=== PATIENT | female | born 1985 | race Caucasian/White ===

== ENCOUNTER 2017-11-07 18:53 | Inpatient (IN) | payer OTHER ==
[~2017-11-07] VITALS: Ht 167.6 cm; Wt 61.2 kg
[2017-11-07] MEDS ORDERED: ONDANSETRON ODT 4 MG TAB.RAPDIS SL PRN (23:45)
[2017-11-07] MEDS ORDERED: MAG HYDROX/AL HYDROX/SIMETH 30 ML LIQUID UDC PO PRN (23:45)
[2017-11-07] MEDS ORDERED: LORAZEPAM 1 MG TABLET PO PRN ×2 (23:45)
[2017-11-07] MEDS ORDERED: diphenhydrAMINE 50 MG CAPSULE PO PRN (23:45)
[2017-11-07] MEDS ORDERED: MAGNESIUM HYDROXIDE 30 ML LIQUID UDC PO PRN (23:45)
[2017-11-07] MEDS ORDERED: IBUPROFEN 400 MG TABLET PO PRN (23:45)
[2017-11-07] MEDS ORDERED: DICYCLOMINE HCL 20 MG TABLET PO PRN (23:45)
[2017-11-07] MEDS ORDERED: MIRALAX 17 GM POWD.PACK PO PRN (23:45)
[2017-11-07] MEDS ORDERED: THIAMINE HCL 200 MG/2 ML VIAL IM ONE (23:45)
[2017-11-07] MEDS ORDERED: CLONIDINE HCL 0.1 MG TABLET PO PRN (23:45)
[2017-11-07] MEDS ORDERED: LOPERAMIDE HCL 2 MG CAPSULE PO PRN ×2 (23:45)
[2017-11-07] MEDS ORDERED: ONDANSETRON 4 MG/2 ML VIAL IM PRN (23:45)
[2017-11-07] MEDS ORDERED: LORAZEPAM 2 MG/1 ML VIAL IM PRN (23:45)
--- NOTE | 2017-11-07 23:45 | NUR ---
Intake assessment Pt meant on first floor riffling through luggage, sorting, disheveled in dirtly clothing. Affect is flat, avoidant, hesitant in responding to requests to take seat and have vitals taken, obsessed with sorting clothing. Once seated pt reports not feeling well and very jumpy. VSs taken, T 99.0, P 110, BP 138/82, R 18, SaO2 94% on RA. Policies and Procedures with admission and stay explained, including distruction of all controlled substances before discharge. Pt agrees to terms and conditions, able to sign consents.
[2017-11-08] VITALS (7 sets, daily range): BP systolic 121–138; BP diastolic 75–94
[2017-11-08] MEDS ORDERED: DIPH25TA25 PO (00:09)
[2017-11-08] MEDS ORDERED: SERT100T PO (00:09)
[2017-11-08] MEDS ORDERED: METH-406 PO (00:09)
[2017-11-08] MEDS ORDERED: QUET300T2 PO (00:09)
[2017-11-08] MEDS ORDERED: SULF1TAB48 PO (00:09)
[2017-11-08] MEDS ORDERED: GABA600T2 PO (00:09)
[2017-11-08] MEDS ORDERED: TRAZ-147 PO (00:09)
[2017-11-08] MEDS ORDERED: CLON0.1T PO (00:09)
[2017-11-08] MEDS ORDERED: ROPI1TAB2 PO (00:09)
[2017-11-08 00:18] LABS: BASOPHILS % (AUTO) 0.5 % (0.0-2.0); EOSINOPHILS # (AUTO) 0.1 K/uL (0.0-0.7); EOSINOPHILS % (AUTO) 0.8 % (0.0-7.0); HEMATOCRIT 41.2 % (31.2-41.9); HEMOGLOBIN 14.3 g/dL (10.9-14.3); LYMPHOCYTES # (AUTO) 1.8 K/uL (20.0-40.0); LYMPHOCYTES % (AUTO) 20.5 % (20.5-51.5); MEAN CORPUSCULAR HEMOGLOBIN 30.1 uug (24.7-32.8); MEAN CORPUSCULAR HGB CONC 35 g/dL (32.3-35.6); MEAN CORPUSCULAR VOLUME 86.7 fL (75.5-95.3); MONOCYTES # (AUTO) 0.9 K/uL (2.0-10.0); MONOCYTES % (AUTO) 10.5 % (0.0-11.0); NEUTROPHILS % (AUTO) 67.7 % (38.5-71.5); PLATELET COUNT (AUTO) 198 K/uL (179-408); RED BLOOD CELL COUNT(AUTO) 4.75 MIL/uL (3.63-4.92); WHITE BLOOD COUNT (AUTO) 8.9 K/uL (3.8-11.8)
[2017-11-08 00:43] LABS: *URINE HCG, QUAL NEGATIVE (NEGATIVE)
[2017-11-08 00:54] LABS: ETHANOL < 3 MG/DL (0-0)
[2017-11-08 00:58] LABS: ALANINE AMINOTRANSFERASE 65 U/L (14-59); ALKALINE PHOSPHATASE 70 U/L (50-136); AMYLASE 107 U/L (25-115); ASPARTATE AMINOTRANSFERASE 60 U/L (15-37); BILIRUBIN,TOTAL 0.6 mg/dL (0.2-1.0); CARBON DIOXIDE 26 mmol/L (21-32); CREATININE 1.1 mg/dL (0.6-1.3); GLUCOSE 145 mg/dL (74-106); LIPASE 404 U/L (73-393); TOTAL PROTEIN, SERUM 7.5 g/dL (6.4-8.2); UREA NITROGEN, BLOOD 15 mg/dL (7-18)
--- NOTE | 2017-11-08 01:00 | NUR ---
Admission Patient is a 31 year old female arriving from [facility] in [place] for detox/withdrawal from Opiates, ETOH, Methamphetamine. Pt was excorted onto unit at 0006 by female attendant, affect depressed, avoidant, little eye contact. States she wants to learn to life life better. Numerous attempts at sobriety in past, longest period of abstinence being 5 to 6 years, ending 3 years prior. Divorce from August 2016, who had approximately same time clean before using also at about same time according to patient. Since that time some periods of sobriety have been achieved but for past 3 months habit has included a fifth of Vodka/day, 1 gram of heroin/day and 1 g of methamphetamine/week. A rehab in [place] for 50+ days, a psychiatrist by the name of Dr Eleazar Thompson are mentioned during the past years attempts. Patient now presents as helpless/hopeless, disheveled with numerous sores on face/hands, skin assessment reveals further sores/scabs on bilateral legs, arms, buttocks, back and shoulders. VSS, but reports body really acting up , and has visible tremors, diaphoresis, chills, no nausea but reports diarrhea for last day. Pulse >100, lungs clear all quadrants, no rales or rhonchi. Bowel sounds present all 4 quadrants, reports normal voids, diarrhea past day. COWS 23, CIWA 19. Denies suicidal ideas, claims Dr Thompson as her psychiatrist (despite not having seen him in 10 months). Meds brought by Pt bear prescriber name of Dr. Za Fontana.
[2017-11-08 01:06] LABS: *AMPHETAMINE, URINE POSITIVE (NEGATIVE); *BARBITURATE, URINE NEGATIVE (NEGATIVE); *CANNABINOID, URINE POSITIVE (NEGATIVE); *COCCAINE, URINE NEGATIVE (NEGATIVE); *OPIATE, URINE POSITIVE (NEGATIVE); *PHENCYCLIDINE SCREEN,URINE NEGATIVE (NEGATIVE)
[2017-11-08 01:09] LABS: THYROID STIMULATING HORMONE 0.288 mIU/mL (0.358-3.740)
--- NOTE | 2017-11-08 01:17 | NUR ---
PRN note30 [place] Prns given at 0117: Immodium 2mg PO for diarrhea Robaxin 750mg PO for myalgias Ativan 2mg PO for anxiety/detox Bentyl 20mg PO for abdominal muscle spasms Subutex 4mg SL for withdrawal/detox Motrin 400mg PO for pain Will continue to monitor and reassess in 1 hour
[2017-11-08] MEDS: METHOCARBAMOL 750 MG TABLET PO PRN ×2 (01:19→10:43)
[2017-11-08] MEDS: BUPRENORPHINE HCL 2 MG TAB.SUBL SL PRN ×2 (01:21→10:43)
[2017-11-08 01:32] LABS: CHLORIDE 103 mmol/L (98-107); POTASSIUM 3.4 mmol/L (3.5-5.1)
--- NOTE | 2017-11-08 02:17 | NUR ---
Reassessment Note: Meds effective. Pt verbalizes improvement in body aches, decreased anxiety, no new incidents of diarhea
--- NOTE | 2017-11-08 03:45 | NUR ---
Behavioral Note: Patient was medicated with Vitamin B1 injection on her left buttock as ordered. After patient received medication, patient was observed pacing and being dramatic of how much the medication hurt. Patient started walking around the room while Primary Nurse and orientee Willie was in the room. We were about to leave when we noticed that we couldnt find the syringe with needle in it. Patient was asked if she saw a syringe but patient denied. Room Search and Body search was done but did not find anything. Administration was notified and placed patient on 1:1 as instructed. Pt managed to get in her bathroom before the 1:1 got to her and injected her self with tap water on her left hand. Left hand was noted with swelling and took picture of it. No other injury noted. Changed pts room to 330. Patient was placed on patio and room restriction. Will closely monitor patient.
--- NOTE | 2017-11-08 07:20 | NUR ---
End of Shift Note: Patient is a 32 y.o female admitted at approximately 0006 for medically supervised withdrawal from polysubstance abuse(ETOH/Heroin/Meth). Patient is alert & oriented x4. Patient has no taper yet. PRN medications available for s/s of withdrawal. Initial COWS 23 CIWA 19. Pt received PRN Immodium, RObaxin, Ativan 2mg, Subutex 4mg, Motrin and Bentyl at 0117 and were effective. Last COWS 17 CIWA 13 noted at 0430. Pt slept for a total of 6 hours. Fluid intake: 355 ml. Voided 2x with no bowel movement during my shift. Patient was encourage to increase fluid intake as tolerated. All needs attended. Safety measures in place. Will endorse to day shift nurse.
--- NOTE | 2017-11-08 08:09 | NUR ---
Start of shift note; Received report from night nurse. Patient is a 32 year old male admitted on 11/07/17 for ETOH/ Opiate/ Methamphetamine withdrawals. Patient is complaining of muscle aches, anxiety, agitation, diaphoresis, stomach cramps, avoidant to eye contact and withdrawn. Patient is currently under 1:1 supervision for behavioral management. Educated patient regarding the importance of compliance to treatment and medication regime, verbalized understanding. Educated patient regarding unit protocols and policies, verbalized understanding. Will closely monitor patient. All safety measures secured. Sitter at bedside.
[2017-11-08] MEDS ORDERED: TUBERCULIN,PURIF.PROT.DERIV. 5 TU/0.1 ML TEST ID ONE (09:00)
[2017-11-08] MEDS: MULTIVITAMINS,THERAPEUTIC TABLET PO SCH (09:02)
[2017-11-08] MEDS: FOLIC ACID 1 MG TABLET PO SCH (09:02)
[2017-11-08] MEDS: THIAMINE HCL 100 MG TABLET PO SCH (09:02)
--- NOTE | 2017-11-08 09:30 | NUR ---
PRN medication; Patient's current COWS is 11 and CIWA score of 11 manifested by tremors, diaphoresis, muscle aches, anxiety, agitation, runny nose. PRN Ativan 1mg PO given for CIWA score of 11. Witnessed patient take medication, thorough mouth assessment done post medication administration. Re-informed patient regarding the importance of compliance to unit protocols and policies, patient verbalized understanding. Will closely monitor patient. Patient remained on 1:1 supervision.
[2017-11-08] MEDS ORDERED: IBUPROFEN 600 MG TABLET PO PRN (09:45)
[2017-11-08] MEDS ORDERED: POTASSIUM CHLORIDE 10 MEQ TAB.PRT.SR PO ONE (09:45)
--- NOTE | 2017-11-08 10:06 | NUR ---
Potassium Supplement; Patient's Potassium level is 3.4, supplemented patient with Micro K 30 meq given. Will continue to monitor patient.
--- NOTE | 2017-11-08 10:40 | NUR ---
Re-assessment and PRN medication; Patient appears anxious, irritable, scratching the scabs on her face/neck/ shoulders, goosebump noted, patient is complaining of muscle aches, diaphoresis, skin picking noted. Current COWS score is 15 and CIWA score remained at 11, Ativan medication ineffective at this time. PRN Robaxin , Subutex 4mg SL given for COWS score of 15. Will closely monitor patient. MD to evaluate patient during rounds. Will closely monitor patient.
[2017-11-08] MEDS: SERTRALINE HCL 100 MG TABLET PO SCH (10:43)
[2017-11-08] MEDS ORDERED: QUETIAPINE FUMARATE 25 MG TABLET PO PRN (10:45)
--- NOTE | 2017-11-08 11:10 | NUR ---
Re-assessment; Patient's current COWS score is 14, PRN Subutex noted to be effective. Patient to start Subutex and Ativan tapers at 1300. MD ordered triple ATB to apply on patient's face, neck and arms for scabs d/t skin picking. Will continue to monitor patient.
[2017-11-08] MEDS ORDERED: NICOTINE 14 MG/24HR PATCH TD PRN (11:30)
[2017-11-08] MEDS ORDERED: NICOTINE POLACRILEX 4 MG GUM-PK OF TEN BC PRN (11:30)
[2017-11-08] MEDS: BUPRENORPHINE HCL 2 MG TAB.SUBL SL SCH ×3 (12:28→21:49)
[2017-11-08] MEDS: LORAZEPAM 1 MG TABLET PO SCH ×3 (12:28→21:49)
--- NOTE | 2017-11-08 12:28 | NUR ---
PRN medication; Patient is appears very anxious and agitated, PRN Seroquel 25mg PO given for agitation as recommended by psychiatrist. Will continue to monitor for effectiveness of medication.
--- NOTE | 2017-11-08 12:48 | NUR ---
Behavioral note; Patient is AOX4. Due Ativan 2mg PO given as ordered. PRN Seroquel 25mg PO given for agitation per psychiatrist's order. Due Subutex 4mg SL given as ordered. Carefully and thoroughly observed patient while the medication is dissolving. Rechecked patient's mouth every 15 seconds and witnessed the medication dissolve slowly. Patient attempted to hide medication by spitting the Subutex on her bed, confronted patient and reinforced the importance of compliance to unit protocols and policies, patient verbalized understanding. Patient stated "I was just trying to spit the hair in my mouth but the Subutex fell". Instructed patient to place Subutex back under her tongue. Witnessed Subutex completely dissolve. Reported to charge nurse and PUBLIC SAFETY TEACHER crossing supervisor.
--- NOTE | 2017-11-08 14:30 | NUR ---
Re-assessment; PRN medication noted to be effective, patient is currently asleep respirations even and unlabored.
[2017-11-08] MEDS: GABAPENTIN 300 MG CAPSULE PO SCH ×2 (15:00→21:48)
[2017-11-08] MEDS: NEOMY/BACITRAC/POLYMI OINT 28.35 GM TUBE TOP SCH (17:22)
--- NOTE | 2017-11-08 18:57 | NUR ---
End of shift note; Patient is AOX4, complaining of anxiety, muscle aches, restless legs, tremors, with suspicious behavior, withdrawn with disheveled appearance. Patient remained on under direct supervision for behavioral supervision. Patient was educated regarding the importance of compliance to treatment and unit policies, verbalized understanding. All safety measures secured. Met all needs.
--- NOTE | 2017-11-08 20:00 | NUR ---
Start of Shift Pt is a 32 year old female admitted for ETOH/Opiate withdrawal, placed on 5 day Ativan and 5 day Subutex. At time of assessment, pt presents in room, sitter at bed side for behavioral management. Pt appears restless, unkempt, dirty fingernails, unwashed hair, hoarding food with spilled drinks, clothes thrown on floor. Pt has poor eye contact, appears irritable when completing assessment with nurse and when instructed on process of medication administration. Pt is restless, rocking back & forth in bed, appears drowsy. Pt reports feeling fatigue, has difficulty thinking clearly. Pt is noted with open scabs all throughout face, chest area, arms. Pt is noted to be constantly picking at them. Pt instructed to refrain from doing so. Medications due, safety measures in place, will continue to monitor.
[2017-11-08] MEDS ORDERED: ROPINIROLE 1 MG PO SCH (21:00)
--- NOTE | 2017-11-08 21:40 | NUR ---
Behavioral Note During medication administration, Pt is instructed to keep hands at her sides during the dissolve of Subutex. Upon pt placing Subutex under the tongue, pt begins to pick at scabs on nose and mouth area and faces away from nurse. Pt again instructed to keep hands at her sides and to face nurse while medication is dissolving. Pt immediately complies, however continues to do so again, and is continuously instructed of the rules. Rechecked patients mouth every 15 seconds with pen light and witnessed medication successfully dissolve slowly. Sitter is at bed, safety measures in place, will continue to monitor.
[2017-11-08] MEDS: LACTOBACILLUS RHAMNOSUS GG 1 EACH CAPSULE PO SCH (21:48)
[2017-11-08] MEDS: DOXYCYCLINE HYCLATE 100 MG TABLET PO SCH (21:48)
[2017-11-08] MEDS: QUETIAPINE FUMARATE 200 MG TABLET PO SCH (21:49)
[2017-11-08] MEDS: TRAZODONE 100 MG TABLET PO SCH (22:00)
--- NOTE | 2017-11-08 22:00 | NUR ---
Medication Refusal Pt refused scheduled Trazodone. Pt states, "I don't need it today, I can fall asleep, I took my Seroquel". Pt educated on risk/benefits of medication, Pt continues to refuse. Safety measures in place, sitter at bed side. Will continue to monitor.
[2017-11-09] VITALS: BP 129/84
--- NOTE | 2017-11-09 | NUR ---
ADRIÁN/CIWA Deferred d/t pt sleeping, to assess while pt is awake as ordered. BP 129/84, pulse 99, resp 16, SpO2 98% RA, temp 98.1 Sitter at bed side, safety measures in place, will continue to monitor.
--- NOTE | 2017-11-09 04:00 | NUR ---
ADRIÁN/BERNADETTE Deferred d/t pt sleeping, to assess while pt is awake as ordered. Pt refused to be woken up for VS assessment Sitter at bed side, safety measures in place, will continue to monitor.
--- NOTE | 2017-11-09 07:08 | NUR ---
End of Shift Pt is a 32 year old female admitted for ETOH/Opiate withdrawal, placed on 5 day Ativan and 5 day Subutex. Sitter at bed side for behavioral management. During shift, pt presented with an unkempt appearance, dirty fingernails, unwashed hair, hoarding food with spilled drinks, clothes thrown on floor. Pt has poor eye contact, appeared irritable. Pt presented with restlessness, rocking back & forth in bed & drowsy - scheduled medications administered. While administering Subutex, Rechecked patients mouth every 15 seconds and witnessed medications successfully dissolve slowly. Pt is noted with open scabs all throughout face, chest area, arms. Pt is noted to be constantly picking at them. Latest COWS 15 & CIWA 12. Pt slept for 7 hours, intake of 355 ml PO, voids x1 and stool x0. Safety measures in place, Endorsed to day shift nurse.
--- NOTE | 2017-11-09 07:30 | NUR ---
START OF SHIFT PT IS A 32 Y/O F ADMITTED FOR ETOH, HEROIN, AND METH W/D. PT IS ON A 5 DAY SUBUTEX AND ATIVAN TAPER STARTED ON THE 11/08 AND TOLERATING WELL. PT IS A/OX4, RESPIRATIONS EVEN AND UNLABORED. PT PRESENTS AGITATION, ANXIETY, RESTLESSNESS, DISHEVELED APPEARANCE, SCAB ABEBE ALL OVER THE FACE, NECK ARMS, SWEATING CHILLS, MUSCLE AND JOINT ACHES. ENCOURAGED PT TO INCREASE FLUIDS TO PROMOTE HYDRATION AND FACILITATE IN DETOX. ENCOURAGED TO NOT PICK AT SCAB ABEBE. PT HAS A SITTER 1:1 FOR BEHAVIORAL ISSUES. SIDE RAILS UPX2 BED IS IN LOWEST POSITION. CALL LIGHT IS WITHIN REACH. WILL CONTINUE TO MONITOR.
[2017-11-09 08:00] VITALS: BP 120/87
[2017-11-09] MEDS: GABAPENTIN 300 MG CAPSULE PO SCH ×3 (09:31→21:54)
[2017-11-09] MEDS: NEOMY/BACITRAC/POLYMI OINT 28.35 GM TUBE TOP SCH ×2 (09:31→16:15)
[2017-11-09] MEDS: FOLIC ACID 1 MG TABLET PO SCH (09:32)
[2017-11-09] MEDS: THIAMINE HCL 100 MG TABLET PO SCH (09:32)
[2017-11-09] MEDS: LACTOBACILLUS RHAMNOSUS GG 1 EACH CAPSULE PO SCH ×2 (09:32→21:54)
[2017-11-09] MEDS: SERTRALINE HCL 100 MG TABLET PO SCH (09:32)
[2017-11-09] MEDS: BUPRENORPHINE HCL 2 MG TAB.SUBL SL SCH ×3 (09:32→21:55)
[2017-11-09] MEDS: LORAZEPAM 1 MG TABLET PO SCH ×3 (09:32→21:53)
[2017-11-09] MEDS: MULTIVITAMINS,THERAPEUTIC TABLET PO SCH (09:32)
[2017-11-09] MEDS: DOXYCYCLINE HYCLATE 100 MG TABLET PO SCH ×2 (09:32→21:53)
--- NOTE | 2017-11-09 11:05 | NUR ---
PT IS OFF 1:1 BEHAVIORAL PER MD ORDERS.
[2017-11-09] MEDS ORDERED: HYDROXYZINE PAMOATE 25 MG CAPSULE PO PRN (11:30)
[2017-11-09] MEDS ORDERED: LORAZEPAM 1 MG TABLET PO PRN ×2 (11:30)
[2017-11-09 12:00] VITALS: BP 123/92
--- NOTE | 2017-11-09 13:30 | NUR ---
PT IS BACK ON 1:1 FOR UNSTEADY GAIT. PT C/O FEELING WEAK, NEEDED ASSISTANCE TO WALK AROUND, OBSERVED WALKING UNSTEADILY.
[2017-11-09 16:00] VITALS: BP 110/73
--- NOTE | 2017-11-09 18:39 | NUR ---
END OF SHIFT PTS COWS/CIWA: 14/08 @0800, 13/06 @1200 AND @1600. PT ATE 50% OF MEALS. PT WAS TAKEN OFF 1:1 FOR BEHAVIORAL @1100 AND PUT BACK ON 1:1 FOR UNSTEADY GAIT @1330. PT WAS PUT ON CONTACT ISOLATION FOR MRSA OF THE NARES. EXPLAINED TO PT ON REASON OF ISOLATION AND PT VERBALIZED UNDERSTANDING. PT WAS COMPLIANT WITH MEDICATIONS AND HAVE NOT BEEN SPITTING THEM OUT/CHEEKING THEM DURING SHIFT OBSERVED DURING DAYSHIFT YESTERDAY. PT APPEARS DROWSY AND FALLS ASLEEP HOWEVER EASILY AROUSABLE. ENCOURAGED PT TO NOT PICK ON MULTIPLE SCABS ON FACE, NECK, ARMS, AND LEGS AND USE OINTMENT PROVIDED. ALL SAFETY MEASURES IN PLACE. WILL GIVE ENDORSEMENT TO TELE RN NURSE.
[2017-11-09 20:00] VITALS: BP 111/74
--- NOTE | 2017-11-09 20:00 | NUR ---
START OF SHIFT NOTE RECEIVED REPORT FROM DAY SHIFT NURSE. PATIENT IS A 32 YEAR OLD FEMALE ADMITTED FOR ETOH/OPIATE WITHDRAWAL. PATIENT IS ON 2ND DAY OF 5 DAY ATIVAN AND 5 DAY SUBUTEX TAPER. PATIENT ON CONTACT ISOLATION FOR MRSA ON NARES. ON BACTROBAN OINTMENT. PATIENT IS ON 1:1 FOR SAFETY. PATIENT IS TO MONITOR FOR CHEEKING MEDICATION. LAST COWS 14 AND CIWA 10. PATIENT DID NOT REQUIRE PRN MEDICATION. RECEIVED PATIENT IN THE ROOM WITH RN GASTROENTEROLOGY. PATIENT IS RESTING. PATIENT WITH FLAT AFFECT, SAD , DISHEVELED, ANXIOUS, FLUSHED AND SWEATING. SAFETY MEASURES IN PLACE. CALL LIGHT IN REACH. WILL CONTINUE TO MONITOR.
[2017-11-09] MEDS: TRAZODONE 100 MG TABLET PO SCH (21:52)
[2017-11-09] MEDS: CLONIDINE HCL 0.1 MG TABLET PO SCH (21:53)
[2017-11-09] MEDS: QUETIAPINE FUMARATE 200 MG TABLET PO SCH (21:59)
[2017-11-09] MEDS: MUPIROCIN 2% OINT 22 GM TUBE NS SCH (21:59)
[2017-11-10] VITALS: BP 103/65
--- NOTE | 2017-11-10 | NUR ---
COWS/CIWA DEFERRED PATIENT IN BED WITH EYES CLOSED. RESPIRATION EVEN AND UNLABORED. SAFETY MEASURES IN PLACE. CALL LIGHT IN REACH. WILL CONTINUE TO MONITOR.
[2017-11-10 03:06] LABS: HEPATITIS B SURFACE AG Negative (Negative)
--- NOTE | 2017-11-10 04:00 | NUR ---
COWS/CIWA DEFERRED PATIENT IN BED WITH EYES CLOSED. VS REFUSED. RESPIRATION EVEN AND UNLABORED. SAFETY MEASURES IN PLACE. CALL LIGHT IN REACH. WILL CONTINUE TO MONITOR.
--- NOTE | 2017-11-10 07:16 | NUR ---
END OF SHIFT NOTE PATIENT SLEPT 8 HOURS. FLUID INTAKE 710 ML .VOIDED X 1. NO BM. PATIENT ON CONTACT ISOLATION FOR MRSA ON NARES. ON BACTROBAN OINTMENT. PATIENT IS ON 1:1 FOR SAFETY. PATIENT TO MONITOR FOR CHEEKING, NO EPISODE DURING SHIFT. PATIENT DID NOT REQUIRE PRN MEDICATION. SAFETY MEASURES IN PLACE. CALL LIGHT IN REACH. WILL CONTINUE TO MONITOR. LAST COWS 9 AND CIWA 8.
--- NOTE | 2017-11-10 07:35 | NUR ---
START OF SHIFT PT IS A 32 Y/O F ADMITTED FOR ETOH, HEROIN, AND METH W/D. PT IS ON A 5 DAY SUBUTEX AND ATIVAN TAPER STARTED ON THE 11/08 AND TOLERATING WELL. LAST COWS 9 AND CIWA 8. NO PRNS GIVEN LAST NIGHT. PT IS A/OX4, RESPIRATIONS EVEN AND UNLABORED. PT APPEARS DISHEVELED, DROWSY, NO EYE CONTACT WHEN SPEAKING, SPEAKS IN A MONOTONOUS VOICE. PT PRESENTS TACHYCARDIA, DIAPHORESIS, AGITATION, ANXIETY, RESTLESSNESS, SCAB ABEBE ALL OVER THE FACE, NECK ARMS, SWEATING CHILLS, MUSCLE AND JOINT ACHES, CONGESTION WITH A PRODUCTIVE COUGH, DIFFICULTY CONCENTRATING, AND FATIGUE. PT REPORTS SENSITIVITY TO LIGHT AND ITCHING. ENCOURAGED PT TO INCREASE FLUIDS TO PROMOTE HYDRATION AND FACILITATE IN DETOX. ENCOURAGED TO NOT PICK AT SCAB ABEBE. PT HAS A SITTER 1:1 FOR UNSTEADY GAIT AND IS ON CONTACT ISOLATION FOR MRSA OF THE NARES. SIDE RAILS UPX2 BED IS IN LOWEST POSITION. CALL LIGHT IS WITHIN REACH. WILL CONTINUE TO MONITOR.
[2017-11-10 08:00] VITALS: BP 124/83
[2017-11-10] MEDS ORDERED: LORAZEPAM 1 MG TABLET PO SCH ×2 (09:00→21:00)
[2017-11-10] MEDS ORDERED: BUPRENORPHINE HCL 2 MG TAB.SUBL SL SCH (09:00)
[2017-11-10] MEDS ORDERED: HYDROXYZINE PAMOATE 25 MG CAPSULE PO PRN (09:00)
[2017-11-10] MEDS: MULTIVITAMINS,THERAPEUTIC TABLET PO SCH (09:33)
[2017-11-10] MEDS: LACTOBACILLUS RHAMNOSUS GG 1 EACH CAPSULE PO SCH ×2 (09:33→20:36)
[2017-11-10] MEDS: SERTRALINE HCL 100 MG TABLET PO SCH (09:33)
[2017-11-10] MEDS: GABAPENTIN 300 MG CAPSULE PO SCH ×3 (09:33→20:34)
[2017-11-10] MEDS: FOLIC ACID 1 MG TABLET PO SCH (09:34)
[2017-11-10] MEDS: CLONIDINE HCL 0.1 MG TABLET PO SCH ×2 (09:34→20:35)
[2017-11-10] MEDS: THIAMINE HCL 100 MG TABLET PO SCH (09:34)
[2017-11-10] MEDS: DOXYCYCLINE HYCLATE 100 MG TABLET PO SCH ×2 (09:34→20:34)
[2017-11-10] MEDS: NEOMY/BACITRAC/POLYMI OINT 28.35 GM TUBE TOP SCH ×2 (09:39→16:17)
[2017-11-10] MEDS: MUPIROCIN 2% OINT 22 GM TUBE NS SCH ×2 (09:39→20:35)
[2017-11-10 10:43] LABS: BILIRUBIN,DIRECT 0.1 mg/dL (0.0-0.2); BILIRUBIN,TOTAL 0.2 mg/dL (0.2-1.0); CREATININE 0.9 mg/dL (0.6-1.3); MAGNESIUM 2.1 mg/dL (1.8-2.4); TOTAL PROTEIN, SERUM 7.3 g/dL (6.4-8.2)
[2017-11-10 10:54] LABS: THYROID STIMULATING HORMONE 1.51 mIU/mL (0.358-3.740)
[2017-11-10 12:00] VITALS: BP 131/72
[2017-11-10] MEDS: LORAZEPAM 1 MG TABLET PO SCH ×2 (12:29→16:21)
[2017-11-10] MEDS: BUPRENORPHINE HCL 2 MG TAB.SUBL SL SCH ×2 (15:46→20:35)
[2017-11-10 16:34] VITALS: BP 120/86
--- NOTE | 2017-11-10 18:35 | NUR ---
END OF SHIFT PTS COWS/CIWA 05/08 @0800, 07/12 @1200 AND @1600. PT IS ON AN ATIVAN/SUBUTEX TAPER THAT STARTED ON 11/08 AND TOLERATING WELL. NO PRNS GIVEN. PT IS TACHYCARDIC; HR 115 @0800, HR 106 @1200, HR 107 @1600. PT IS CURRENTLY CONSUMING 50% OF MEALS. PT REMAINS ON ISOLATION FOR MRSA NARES AND 1:1 FOR UNSTEADY GAIT. PT IS COMPLIANT WITH MED ADMINISTRATION, OBSERVED FOR CHEEKING/SAVING MEDS AND PROPERLY APPLYING BACTROBAN OINTMENT TO NARES FOR TX OF MRSA. ALL SAFETY MEASURES IN PLACE. WILL GIVE ENDORSEMENT TO WING COMMANDER NURSE.
[2017-11-10 20:00] VITALS: BP 118/77
--- NOTE | 2017-11-10 20:00 | NUR ---
START OF SHIFT NOTE RECEIVED REPORT FROM DAY SHIFT NURSE. PATIENT IS A 32 YEAR OLD FEMALE ADMITTED FOR ETOH/HEROIN WITHDRAWAL. CONTINUE ON SUBUTEX AND ATIVAN TAPER, TOLERATED AND NO ADVERSE REACTION. CONTINUE ON 1:1 FOR SAFETY AND CONTACT ISOLATION FOR MRSA ON BOTH NARES. PATIENT COMPLIANT WITH MEDICATION, NO CHEEKING. PATIENT WAS GIVEN ONE TIME ATIVAN. LAST COWS 11 AND CIWA 12. RECEIVED PATIENT IN THE ROOM WITH SOURCING INTERNSHIP FOR 1:1. PATIENT RESTING. UPON ASSESSMENT , PATIENT C/O HEADACHE, NOTED FLUSHED, DISHEVELED, ANXIOUS, SWEATING, AGITATED AND IRRITABLE . ROOM SMELLS AND GARBAGE AROUND ROOM. SAFETY MEASURES IN PLACE. CALL LIGHT IN REACH. WILL CONTINUE TO MONITOR
[2017-11-10] MEDS: QUETIAPINE FUMARATE 200 MG TABLET PO SCH (20:30)
[2017-11-10] MEDS: ACETAMINOPHEN 325 MG TABLET PO PRN (20:30)
--- NOTE | 2017-11-10 20:30 | NUR ---
PRN TYLENOL ADMINISTRATION PATIENT C/O HEADACHE . WILL MONITOR FOR EFFECTIVENESS
[2017-11-10] MEDS: TRAZODONE 100 MG TABLET PO SCH (20:33)
--- NOTE | 2017-11-10 21:30 | NUR ---
PRN TYLENOL RE-ASSESSMENT PATIENT IN BED WITH EYES CLOSED. NO FACIAL GRIMACING. WILL CONTINUE TO MONITOR.
[2017-11-11] VITALS: BP 106/64
--- NOTE | 2017-11-11 | NUR ---
COWS AND CIWA DEFERRED PATIENT IN BED ASLEEP WITH EYES CLOSED. RESPIRATION EVEN AND UNLABORED. SAFETY MEASURES IN PLACE. CALL LIGHT IN REACH. WILL CONTINUE TO MONITOR.
--- NOTE | 2017-11-11 04:00 | NUR ---
COWS/CIWA DEFERRED PATIENT IN BED ASLEEP WITH EYES CLOSED. VS REFUSED. RESPIRATION EVEN AND UNLABORED. SAFETY MEASURES IN PLACE. CALL LIGHT IN REACH. WILL CONTINUE TO MONITOR.
--- NOTE | 2017-11-11 07:22 | NUR ---
END OF SHIFT NOTE PATIENT SLEPT 6 HOURS. FLUID INTAKE 355 ML. VOIDED X 355 ML. VOIDED X 1. NO BM. CONTINUE PATIENT ON SUBUTEX AND ATIVAN TAPER, TOLERATED AND NO ADVERSE REACTION. CONTINUE ON 1:1 FOR SAFETY AND CONTACT ISOLATION FOR MRSA ON BOTH NARES. PATIENT COMPLIANT WITH MEDICATION, NO CHEEKING. DURING SHIFT. PATIENT WAS GIVEN PRN TYLENOL FOR HEADACHE, EFFECTIVE. SAFETY MEASURES IN PLACE. CALL LIGHT IN REACH. WILL CONTINUE TO MONITOR. LAST COWS 8 AND CIWA 8.
--- NOTE | 2017-11-11 07:34 | NUR ---
START OF SHIFT PT IS A 32 Y/O F ADMITTED FOR ETOH, HEROIN, AND METH W/D. PT IS ON A 5 DAY SUBUTEX AND ATIVAN TAPER STARTED ON THE 11/08 AND TOLERATING WELL. LAST COWS 8 AND CIWA 8. PT WAS GIVEN TYLENOL LAST NIGHT FOR HEADACHE AND WAS EFFECTIVE. PT IS A/OX4, RESPIRATIONS EVEN AND UNLABORED. PT APPEARS DROWSY, DISHEVELED, NO EYE CONTACT WHEN SPEAKING, SPEAKS IN A MONOTONOUS VOICE. PT PRESENTS DIAPHORESIS, AGITATION, ANXIETY, ELEVATED HR, RESTLESSNESS, CHILLS, MUSCLE AND JOINT ACHES, CONGESTION WITH A PRODUCTIVE COUGH, DIFFICULTY CONCENTRATING, AND FATIGUE. ENCOURAGED PT TO INCREASE FLUIDS TO PROMOTE HYDRATION AND FACILITATE IN DETOX. PT HAS A SITTER 1:1 FOR UNSTEADY GAIT AND IS ON CONTACT ISOLATION FOR MRSA OF THE NARES. SIDE RAILS UPX2 BED IS IN LOWEST POSITION. CALL LIGHT IS WITHIN REACH. WILL CONTINUE TO MONITOR AND PROVIDE SUPPORT.
[2017-11-11 09:46] VITALS: BP 128/79
[2017-11-11] MEDS: MULTIVITAMINS,THERAPEUTIC TABLET PO SCH (09:54)
[2017-11-11] MEDS: CLONIDINE HCL 0.1 MG TABLET PO SCH ×2 (09:54→20:25)
[2017-11-11] MEDS: GABAPENTIN 300 MG CAPSULE PO SCH ×3 (09:54→20:22)
[2017-11-11] MEDS: LACTOBACILLUS RHAMNOSUS GG 1 EACH CAPSULE PO SCH ×2 (09:54→20:25)
[2017-11-11] MEDS: SERTRALINE HCL 100 MG TABLET PO SCH (09:54)
[2017-11-11] MEDS: LORAZEPAM 1 MG TABLET PO SCH ×2 (09:55→15:06)
[2017-11-11] MEDS: FOLIC ACID 1 MG TABLET PO SCH (09:55)
[2017-11-11] MEDS: BUPRENORPHINE HCL 2 MG TAB.SUBL SL SCH ×3 (09:55→20:34)
[2017-11-11] MEDS: DOXYCYCLINE HYCLATE 100 MG TABLET PO SCH ×2 (09:56→20:25)
[2017-11-11] MEDS: THIAMINE HCL 100 MG TABLET PO SCH (09:56)
[2017-11-11] MEDS: MUPIROCIN 2% OINT 22 GM TUBE NS SCH ×2 (09:58→20:31)
[2017-11-11] MEDS: NEOMY/BACITRAC/POLYMI OINT 28.35 GM TUBE TOP SCH (09:58)
[2017-11-11 12:31] VITALS: BP 101/66
[2017-11-11 16:00] VITALS: BP 103/61
[2017-11-11] MEDS ORDERED: KETOROLAC TROMETHAMINE 30 MG INJ IM PRN (16:30)
--- NOTE | 2017-11-11 19:10 | NUR ---
END OF SHIFT PT'S LAST COWS/CIWA 04/07 @1600. NO PRNS DURING SHIFT. PT REMAINS TACHYCARDIC DURING SHIFT. PT REMAINS ON A 1:1 FOR UNSTEADY GAIT. PT WAS SLEEPING ON AND OFF DURING SHIFT. PT REPORTS HAVING SWEATING, ANXIETY, AGITATION, GENERALIZED BODY ACHES, DIFFICULTY CONCENTRATING, TREMORS. ENCOURAGED PT TO ATTEND GROUP; PT VERBALIZED SHE IS NOT FEELING WELL BUT WILL GO STARTING FROM TOMORROW. PT ATE MOSTLY 50% OF MEALS TODAY. ENCOURAGED PT TO MAINTAIN CLEANLINESS OF ROOM. ALL SAFETY MEASURES IN PLACE. WILL GIVE ENDORSEMENT TO NICKING MACHINE OPERATOR.
[2017-11-11 20:00] VITALS: BP 116/74
--- NOTE | 2017-11-11 20:00 | NUR ---
Start of Shift Pt is a 32 year old female admitted for ETOH/Opiate/Methamphetamine Withdrawal, placed on 5 day Ativan and 5 day Subutex taper. At time of assessment, Pt presents in room in bed, with 1:1 sitter at bedside for safety, pt appears drowsy, unkempt, disheveled, flushed, hoarding food, spilled drinks, garbage around room, poor eye contact, presents with anxious, reports body aches, skin is clammy, difficulty concentrating. Pt is on MRSA Isolation of the nares, wheelchair available for use. Medications due, safety measures in place, will continue to monitor.
[2017-11-11] MEDS: ACETAMINOPHEN 325 MG TABLET PO PRN (20:21)
--- NOTE | 2017-11-11 20:21 | NUR ---
PRN Administration Pt presents with an elevated temp 101.8. Tylenol 650mg PRN administered. Safety measures in place, will continue to monitor.
[2017-11-11] MEDS: QUETIAPINE FUMARATE 200 MG TABLET PO SCH (20:29)
[2017-11-11] MEDS ORDERED: LORAZEPAM 1 MG TABLET PO SCH (21:00)
[2017-11-11] MEDS: TRAZODONE 100 MG TABLET PO SCH (21:00)
--- NOTE | 2017-11-11 21:25 | NUR ---
PRN Reassessment Temp 101.8 decreased to 98.3. Tylenol effective. Needs met, safety measures in place, will continue to monitor.
[2017-11-12] VITALS: BP 104/68
--- NOTE | 2017-11-12 04:00 | NUR ---
ADRIÁN/CIWA deferred d/t pt sleeping - to assess while pt is awake as ordered. Pt refused to be woken for VS assessment Safety measures in place, will continue to monitor.
--- NOTE | 2017-11-12 07:00 | NUR ---
End of Shift Pt is a 32 year old female admitted for ETOH/Opiate/Methamphetamine Withdrawal, placed on 5 day Ativan and 5 day Subutex taper. During shift, Pt presented in room in bed, with 1:1 sitter at bedside for safety, pt appeared drowsy, unkempt, disheveled, flushed, hoarding food, spilled drinks, garbage around room, poor eye contact, presented with reports of anxiety, reported body aches, skin clammy, difficulty concentrating scheduled medications administered, latest COWS 10 and CIWA 11. Tylenol 650mg PRN administered for temp 101.8. Tylenol effective, decreased temp 98.3. Pt is on MRSA Isolation of the nares, wheelchair available for use. Pt slept for 5 hours, intake of 200 ml PO, voids x1 and stool x0. Safety measures in place, Endorsed to day shift nurse.
--- NOTE | 2017-11-12 07:30 | NUR ---
START OF SHIFT Pt is a 32 yr old female, admitted on 11/07/17 for ETOH/Opiate withdrawal and is on 5 day Ativan and Subutex taper as ordered, medication henna well. Received report from hotel night auditor nurse. Pt received Tylenol PRN for increase temp. Medication was effective and remains afebrile. Pt is on contact isolation for MRSA of nares. Pt also in on 1:1 for unsteady gait. Last COWS score was 10 and CIWA score was 11 at 0000. Pt is currently in bed resting with respirations even and unlabored. Skin is warm and moist to touch. Pt is on fall and seizure precautions. Call light is with reach. Will continue to monitor.
[2017-11-12 08:30] VITALS: BP 100/69
[2017-11-12] MEDS ORDERED: BUPRENORPHINE HCL 2 MG TAB.SUBL SL SCH (09:00)
[2017-11-12] MEDS ORDERED: LORAZEPAM 1 MG TABLET PO SCH (09:00)
[2017-11-12] MEDS: MULTIVITAMINS,THERAPEUTIC TABLET PO SCH (09:13)
[2017-11-12] MEDS: LACTOBACILLUS RHAMNOSUS GG 1 EACH CAPSULE PO SCH ×2 (09:13→22:38)
[2017-11-12] MEDS: THIAMINE HCL 100 MG TABLET PO SCH (09:13)
[2017-11-12] MEDS: DOXYCYCLINE HYCLATE 100 MG TABLET PO SCH ×2 (09:14→22:37)
[2017-11-12] MEDS: GABAPENTIN 300 MG CAPSULE PO SCH ×3 (09:14→22:38)
[2017-11-12] MEDS: FOLIC ACID 1 MG TABLET PO SCH (09:15)
[2017-11-12] MEDS: LORAZEPAM 1 MG TABLET PO SCH ×3 (09:15→22:38)
[2017-11-12] MEDS: SERTRALINE HCL 100 MG TABLET PO SCH (09:15)
[2017-11-12] MEDS: CLONIDINE HCL 0.1 MG TABLET PO SCH ×3 (09:15→22:39)
[2017-11-12] MEDS: MUPIROCIN 2% OINT 22 GM TUBE NS SCH ×2 (09:16→21:00)
[2017-11-12 12:00] VITALS: BP 96/65
[2017-11-12] MEDS ORDERED: METHYL SALICYLATE/MENTHOL CREAM 28 GM TUBE TOP PRN (12:30)
[2017-11-12] MEDS: BUPRENORPHINE HCL 2 MG TAB.SUBL SL SCH ×2 (14:32→22:37)
[2017-11-12] MEDS: ACETAMINOPHEN 325 MG TABLET PO SCH ×2 (14:33→22:38)
[2017-11-12] MEDS ORDERED: NAPROXEN 500 MG TABLET PO SCH (15:00)
[2017-11-12 15:41] LABS: BASOPHILS # (AUTO) 0.1 K/uL (0.0-8.0); BASOPHILS % (AUTO) 0.4 % (0.0-2.0); EOSINOPHILS # (AUTO) 0.2 K/uL (0.0-0.7); EOSINOPHILS % (AUTO) 1.3 % (0.0-7.0); HEMATOCRIT 36.8 % (31.2-41.9); HEMOGLOBIN 12.5 g/dL (10.9-14.3); LYMPHOCYTES # (AUTO) 1.7 K/uL (20.0-40.0); LYMPHOCYTES % (AUTO) 12.1 % (20.5-51.5); MEAN CORPUSCULAR HEMOGLOBIN 29.9 uug (24.7-32.8); MEAN CORPUSCULAR HGB CONC 34 g/dL (32.3-35.6); MEAN CORPUSCULAR VOLUME 88.2 fL (75.5-95.3); MONOCYTES # (AUTO) 1.1 K/uL (2.0-10.0); MONOCYTES % (AUTO) 8.4 % (0.0-11.0); NEUTROPHILS # (AUTO) 10.6 K/uL (1.8-8.9); NEUTROPHILS % (AUTO) 77.8 % (38.5-71.5); PLATELET COUNT (AUTO) 159 K/uL (179-408); RED BLOOD CELL COUNT(AUTO) 4.18 MIL/uL (3.63-4.92); WHITE BLOOD COUNT (AUTO) 13.7 K/uL (3.8-11.8)
[2017-11-12 15:47] LABS: CREATININE 0.8 mg/dL (0.6-1.3); MAGNESIUM 1.8 mg/dL (1.8-2.4)
[2017-11-12 16:00] VITALS: BP 107/56
[2017-11-12] MEDS ORDERED: DIPH50CA37 PO (16:08)
[2017-11-12] MEDS ORDERED: METH-406 PO (16:08)
[2017-11-12] MEDS ORDERED: FAMO20TA8 PO (16:08)
[2017-11-12] MEDS ORDERED: NAPR-1009 PO (16:08)
[2017-11-12] MEDS ORDERED: DICY20TA28 PO (16:08)
[2017-11-12] MEDS ORDERED: GABA-534 PO ×2 (16:08)
[2017-11-12] MEDS ORDERED: DOXY100T2 PO (16:08)
[2017-11-12] MEDS ORDERED: CLON0.1T14 PO (16:08)
[2017-11-12] MEDS ORDERED: QUET200T PO (16:08)
[2017-11-12] MEDS ORDERED: LEVO500T2 PO (16:08)
[2017-11-12] MEDS ORDERED: HYDR-3895 PO (16:08)
[2017-11-12] MEDS ORDERED: ACET325T53 PO (16:08)
[2017-11-12] MEDS: LEVOFLOXACIN 500 MG TABLET PO SCH (17:00)
--- NOTE | 2017-11-12 19:15 | NUR ---
END OF SHIFT Pt is a 32 yr old female, AA&Ox3. Pt was admitted on 11/07/17 for ETOH/Opiate withdrawal and is on 6 day Subutex taper and 6 day Ativan taper as ordered. Pt has been observed with increase drowsiness and remained in bed throughout the day. Pt refused to attend group therapy. Pt c/o body generalized body aches 01/07 and received new order for Naproxen 500mg PO Q12 and Tylenol 650mg PO TIDSRC routine. Medication was given and henna well. Pt remains on 1:1 for unsteady gait and remains on contact isolation for MRSA of nares. Last COWS score was 4 and CIWA score was 4 at 1600. Blood draw was taken for blood culture and CBC and BMP. Blood culture is pending. Pt started on Levaquin for infection. No adverse reaction noted. Pt remains afebrile. Pt was encouraged increase fluid intake for hydration. Safety precautions observed. Call light is within reach.
--- NOTE | 2017-11-12 19:20 | NUR ---
Start of Shift Patient Received. Patient is in her bed sleeping. Breathing even and non labored. 1:1 sitter at bedside for safety. Per endorsement, patient is a 32 year old female admitted on 11/07/17 and continues on a modified Ativan and Subutex taper. 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 Patient is noted to be non-compliant with group meetings and social activities due to increased drowsiness. New orders for naproxen 500mg Q12H and Tylenol 650mg TID routine and tolerating well. Patient is currently receiving ATB therapy of Doxycycline 100mg for wounds, Bactroban to be applied to nares for MRSA, and new order for Levaquin 500mg for possible infection. Last noted COWS 4 and CIWA 4. No PRN medications administered. All needs attended to promptly. Will continue plan of care as ordered.
[2017-11-12 20:30] VITALS: BP 106/70
[2017-11-12] MEDS: TRAZODONE 100 MG TABLET PO SCH (21:00)
[2017-11-12] MEDS ORDERED: LACTOBACILLUS RHAMNOSUS GG 1 EACH CAPSULE PO SCH (21:00)
[2017-11-12] MEDS: NAPROXEN 500 MG TABLET PO SCH (22:38)
[2017-11-12] MEDS: QUETIAPINE FUMARATE 200 MG TABLET PO SCH (22:38)
--- NOTE | 2017-11-12 22:45 | NUR ---
Diverting Medication During medication administration patient was noted attempting to divert medication. Instructed patient to keep all medications in medication cup. Patient was instructed several times to swallow all pills and during oral check patient was noted attempting to cheek medications. Oral check rendered several times while Subutex dissolved. Patient then verbalized "I'm going to have ice cream since I was a good girl and to my medications right."
[2017-11-13 00:44] VITALS: BP 96/63
[2017-11-13 04:15] VITALS: BP 98/65
--- NOTE | 2017-11-13 07:24 | NUR ---
End of Shift Patient is in bed sleeping. Breathing even and non labored. Patient remains on 1:1 for safety. Patient continues on a modified Ativan and Subutex taper. She remains on contact isolation for MRSA of Nares. Patient is noted to be non-compliant with group meetings and social activities due to increased drowsiness. Patient continues receiving ATB therapy of Doxycycline 100mg for wounds, Bactroban to be applied to nares for MRSA, and new order for Levaquin 500mg for possible infection. During medication administration patient was noted attempting to divert medication. Instructed patient to keep all medications in medication cup. Patient was instructed several times to swallow all pills and during oral check patient was noted attempting to cheek medications. Oral check rendered several times while Subutex disolved. Patient then verbalized "im going to have ice cream since I was a good girl and to my medications right." Last noted COWS 7 and CIWA 7. All needs attended to proptly. Will endorse to continue plan of care as ordered.
--- NOTE | 2017-11-13 07:52 | NUR ---
BEGINNING OF SHIFT Patient endorsement report received from medical coding auditor nurse, all pertinent information discussed. Patient is a 32 year old Female with admitting Dx: ETOH/Opiate withdrawal, and substance use of: marijuana, and methamphetamine. Patient continues on a 6 day Ativan taper and 6 day Subutex taper as ordered. Per medical coding auditor patient with last ciwa score of: 7, and last cow score of: 7. Received no PRNs during shift. per medical coding auditor. slept for 8 hours. will monitor closely during shift. Fall and seizure precautions observed at all times. patient conitnues with 1:1 for safety precautions. Patient received awake, alert and oriented x4, educated regarding plan of care for the day, and medication regimen with good verbal understanding. fall and seizure precautions observed and in place. will continue to monitor closely. safety measures in place.
[2017-11-13 08:49] VITALS: BP 110/69
[2017-11-13] MEDS: SERTRALINE HCL 100 MG TABLET PO SCH (08:53)
[2017-11-13] MEDS: LACTOBACILLUS RHAMNOSUS GG 1 EACH CAPSULE PO SCH (08:53)
[2017-11-13] MEDS: CLONIDINE HCL 0.1 MG TABLET PO SCH ×2 (08:53→21:15)
[2017-11-13] MEDS: ACETAMINOPHEN 325 MG TABLET PO SCH ×3 (08:53→21:14)
[2017-11-13] MEDS: FAMOTIDINE 20 MG TABLET PO SCH (08:54)
[2017-11-13] MEDS: GABAPENTIN 300 MG CAPSULE PO SCH ×3 (08:54→21:16)
[2017-11-13] MEDS: FOLIC ACID 1 MG TABLET PO SCH (08:54)
[2017-11-13] MEDS: MULTIVITAMINS,THERAPEUTIC TABLET PO SCH (08:54)
[2017-11-13] MEDS: NAPROXEN 500 MG TABLET PO SCH ×2 (08:54→21:14)
[2017-11-13] MEDS: THIAMINE HCL 100 MG TABLET PO SCH (08:54)
[2017-11-13] MEDS: DOXYCYCLINE HYCLATE 100 MG TABLET PO SCH (08:54)
[2017-11-13] MEDS: MUPIROCIN 2% OINT 22 GM TUBE NS SCH ×2 (08:55→21:16)
[2017-11-13] MEDS ORDERED: LORAZEPAM 1 MG TABLET PO SCH (09:00)
[2017-11-13] MEDS ORDERED: BUPRENORPHINE HCL 2 MG TAB.SUBL SL SCH (09:00)
--- NOTE | 2017-11-13 13:28 | NUR ---
Therapist prompted client to attend all groups while in treatment to increase feelings of being connected to others and not be isolated in bedroom. Therapist explained the benefits of attending groups such as learning new coping tools, learning about feelings/emotions and being able to learn to decrease negative feelings and thoughts.
[2017-11-13 13:30] VITALS: BP 91/61
[2017-11-13 15:31] LABS: *BILIRUBIN,URIN NEGATIVE (NEGATIVE); *BLOOD, URINE 1+ (NEGATIVE); *CLARITY,URINE SLIGHTLY CLOUDY (CLEAR); *COLOR,URINE YELLOW (YELLOW); *KETONES,URINE TRACE (NEGATIVE); *PROTEIN,URINE TRACE (NEGATIVE); *UROBILINOGEN,URINE 0.2 E.U./dl (NORMAL); LEUKOCYTE ESTERASE ,URINE NEGATIVE (NEGATIVE); NITRITE, URINE NEGATIVE (NEGATIVE); UGLUCOSE NEGATIVE (NEGATIVE)
[2017-11-13 16:32] LABS: BACTERIA,URINE FEW /HPF (NONE SEEN); SQUAMOUS EPITHELIAL CELL,UR MANY /HPF (NONE SEEN); URIC ACID CRYSTALS,URINE FEW /HPF (NONE SEEN); WBC,URINE 0-3 /HPF (0-3)
[2017-11-13 16:33] LABS: RBC,URINE 20-50 /HPF (0-3)
[2017-11-13 17:00] VITALS: BP 100/68
[2017-11-13] MEDS: LEVOFLOXACIN 500 MG TABLET PO SCH (17:18)
--- NOTE | 2017-11-13 19:00 | NUR ---
Start of Shift Patient Received. Patient is noted in her room, awake, alert and verbally responsive. Per endorsement, patient has completed both modified tapers of Subutex and Ativan. Patient is set for discharge tomorrow 11/13/17. Patient remains patient was seen by MD with new order of urine analysis to rule out possible infection with no new orders noted. Influenza resulted negative and strep currently awaiting results. New orders for PT with no new orders. Patient received PRN Vistaril for increased anxiety with medication noted to be effective. Last noted CIWA 5 and COWS 5. All needs attended to promptly. Will endorse to continue plan of care as orders.
--- NOTE | 2017-11-13 19:01 | NUR ---
END OF SHIFT Patient alert and oriented x4, Patient is disheveled, anxious, worried, with irritable facial expression. Patients appearance is unkempt, odorous, with poor hygiene. Mood is flat and labile. patient was encouraged to self groom and maintain personal area. completed Subutex and Ativan taper, Patient received last dose this morning, well tolerated, detox medication effective at reducing withdrawal symptoms. patient is scheduled to be discharged tomorrow morning, noted self motivated towards sobriety. Patient had PT eval during shift. continues with 1: 1 for safety precautions. influenza swab, strep swab and urine specimen were collected during shift. During shift patient presented with: chills, bone and joint aches, lacrimation, anxiety and gooseflesh, initial cow score of: 10, ciwa score of: 10, last cow score of: 5 and last ciwa score of: 5. patient was encouraged adequate PO fluid intake as tolerated, patient encouraged to develop coping skills and utilization of non pharmacological interventions. Patient was encouraged to participate in therapy session .Encouraged diversional activities to alleviate anxiety. Denies any SI/HI. Safety measures in place. Call light kept with in reach, patient endorsed to night auditor nurse, all pertinent information was discussed.
[2017-11-13 20:05] VITALS: BP 128/84
[2017-11-13] MEDS: TRAZODONE 100 MG TABLET PO SCH (21:00)
[2017-11-13] MEDS: QUETIAPINE FUMARATE 200 MG TABLET PO SCH (21:14)
[2017-11-14 00:19] VITALS: BP 118/77
[2017-11-14 04:15] VITALS: BP 109/67
--- NOTE | 2017-11-14 07:25 | NUR ---
End of Shift Patient is in bed sleeping. Breathing even and non labored. No signs of restlessness or discomfort noted. Patient has completed both modified tapers of Subutex and Ativan. She is set for discharge today 11/13/17. No PRN Medications administered. Last noted CIWA 9 and COWS 8. Patient slept a total of 5 hours. All needs attended to promptly. Will endorse to continue plan of care as orders.
--- NOTE | 2017-11-14 07:30 | NUR ---
START OF SHIFT Pt 32 y/o female admitted for heroin/ etoh withdrawal. Pt received in room on bed with eyes closed resting, but easily arousable to name. Perrla. Pt alert and oriented to name, place, and time. Skin warm and dry to touch. Respirations even and unlabored. Pt with 1:1 sitter to monitor for safety. Last reported [id number] and ciwa=9 @2100. It was reported that pt slept for 5 hours last night. Pt is scheduled to be discharged today. Pt completed a 6 day ativan and a 6 day subutex taper. Bed on lowest position with side rails x2 up for safety. Call light within reach.
[2017-11-14 08:00] VITALS: BP 103/66
[2017-11-14 08:28] VITALS: BP 118/68
[2017-11-14] MEDS: SERTRALINE HCL 100 MG TABLET PO SCH (08:28)
[2017-11-14] MEDS: NAPROXEN 500 MG TABLET PO SCH (08:28)
[2017-11-14] MEDS: THIAMINE HCL 100 MG TABLET PO SCH (08:28)
[2017-11-14] MEDS: GABAPENTIN 300 MG CAPSULE PO SCH (08:28)
[2017-11-14] MEDS: FOLIC ACID 1 MG TABLET PO SCH (08:28)
[2017-11-14] MEDS: ACETAMINOPHEN 325 MG TABLET PO SCH (08:28)
[2017-11-14] MEDS: CLONIDINE HCL 0.1 MG TABLET PO SCH (08:28)
[2017-11-14] MEDS: MULTIVITAMINS,THERAPEUTIC TABLET PO SCH (08:28)
[2017-11-14] MEDS: FAMOTIDINE 20 MG TABLET PO SCH (08:28)
[2017-11-14] MEDS: MUPIROCIN 2% OINT 22 GM TUBE NS SCH (08:29)
--- NOTE | 2017-11-14 09:24 | NUR ---
END OF SHIFT Pt 32 y/o female admitted for heroin/ etoh withdrawal. Pt alert and oriented to name, place, and time. Perrla. Skin warm and dry to touch. Respirations even and unlabored. No belongings in cassette or cabinet noted. Pt prescriptions, discharge papers, and home medications packed in pt bag. Pt denies any SI/HI. VS wnl. Pt was discharged to [facility]. No distress noted.
== END 2017-11-14 09:24 | disposition other institution (70) | DRG 895 ==
LOC: SRC 22:37
PROVIDERS: ADMIT Internal Medicine; ATTEND Internal Medicine
PROC: HZ2ZZZZ Detoxification Services for Substance Abuse Treatment (ICD-10-PCS; principal; 2017-11-07)
PROC: HZ51ZZZ Individual Psychotherapy for Substance Abuse Treatment, Behavioral (ICD-10-PCS; 2017-11-09)
DX: F10.232 Alcohol dependence with withdrawal with perceptual disturbance (principal); K85.20 Alcohol induced acute pancreatitis without necrosis or infection; K70.10 Alcoholic hepatitis without ascites; L03.114 Cellulitis of left upper limb; L03.113 Cellulitis of right upper limb; E87.6 Hypokalemia; F11.23 Opioid dependence with withdrawal; Y90.9 Presence of alcohol in blood, level not specified; E07.81 Sick-euthyroid syndrome; Z22.322 Carrier or suspected carrier of Methicillin resistant Staphylococcus aureus; F15.23 Other stimulant dependence with withdrawal; F12.20 Cannabis dependence, uncomplicated; Z59.0 Homelessness; Z59.1 Inadequate housing; Z81.8 Family history of other mental and behavioral disorders; F41.9 Anxiety disorder, unspecified; S51.832S Puncture wound without foreign body of left forearm, sequela; S51.831S Puncture wound without foreign body of right forearm, sequela; X78.8XXS Intentional self-harm by other sharp object, sequela; F32.9 Major depressive disorder, single episode, unspecified; Z81.1 Family history of alcohol abuse and dependence; R73.9 Hyperglycemia, unspecified
CPT/HCPCS: 36415; 71045; 80307; 80324; 80349; 80361; 83690; 83735; 84443; 84703; 85025; 86403; 86592; 86705; 86803; 87040; 87070; 87340; 87400; 87806; 93005; A4663; G0480; J3411